=== PATIENT | female | born 1980 | race African-American/Black ===

== ENCOUNTER 2020-05-18 21:10 | Emergency (ER) | payer MEDICAID ==
[~2020-05-18] VITALS: Ht 167.6 cm; Wt 65.0 kg
[~2020-05-18 21:10] MED LIST: KLONOPIN0.5 MG PO; LISINOPRIL-HCT1 EAC4 PO
[2020-05-18 21:21] VITALS: BP 119/77; Ht 167.6 cm; Wt 65.0 kg
[2020-05-18 21:56] LABS: BASOPHILS 0.4 % (0-2); EOSINOPHILS 1.6 % (0-7); HEMATOCRIT 38.6 % (36.0-48.0); IMMATURE GRANULOCYTES 0.1 % (0-5); LYMPHOCYTE ABS# 3.74 10x3/uL (1.18-3.74); MCH 29.1 pg (26.0-34.0); MCHC 33.7 g/dL (31.0-37.0); MCV 86.4 fL (80.0-100.0); MEAN PLATELET VOLUME 9.1 fL (7.4-10.4); MONOCYTES 7.4 % (2-11); NEUTROPHIL ABS# 4.32 10x3/uL (1.56-6.13); NEUTROPHILS 48.5 % (40-80); PLATELET COUNT 318 10x3/uL (130-400); RBC 4.47 10x6/uL (4.00-5.40); RDW 14.8 % (11.5-14.5); WBC 8.9 10x3/uL (4.8-10.8)
[2020-05-18 22:22] LABS: ANION GAP 9.8 mmol/L (8-16); CALCIUM 8.7 mg/dL (8.5-10.1); CREATININE - SERUM 0.9 mg/dL (0.6-1.3); POTASSIUM - SERUM 4.8 mmol/L (3.5-5.1)
[2020-05-18 22:28] LABS: ALBUMIN 3.8 g/dL (3.4-5.0); BILIRUBIN - TOTAL 0.32 mg/dL (0.2-1.3); PROTEIN - SERUM 7.7 g/dL (6.4-8.2)
[2020-05-18 23:03] LABS: BILIRUBIN NEGATIVE (NEGATIVE); KETONE NEGATIVE (NEGATIVE); NITRITE NEGATIVE (NEGATIVE); UROBILINOGEN NORMAL mg/dL (< 2)
== END 2020-05-18 23:24 | disposition home or self-care (01) ==
LOC: D.ER 21:10
PROVIDERS: Family Medicine
DX: M79.662 Pain in left lower leg (principal); V03.99XA Pedestrian with other conveyance injured in collision with car, pick-up truck or van, unspecified whether traffic or nontraffic accident, initial encounter; Y93.9 Activity, unspecified; Y92.9 Unspecified place or not applicable; I10 Essential (primary) hypertension; Z72.0 Tobacco use

== ENCOUNTER 2020-05-19 08:27 | Emergency (ER) | payer MEDICAID ==
[~2020-05-19] VITALS: Ht 167.6 cm; Wt 65.0 kg
[2020-05-19 08:29] VITALS: Ht 167.6 cm; Wt 65.0 kg
[2020-05-19 09:27] VITALS: BP 125/81
== END 2020-05-19 09:28 | disposition home or self-care (01) ==
LOC: D.ER 08:27
DX: Z71.1 Person with feared health complaint in whom no diagnosis is made (principal); I10 Essential (primary) hypertension